=== PATIENT | male | born 1985 | race Caucasian/White ===

== ENCOUNTER 2017-05-20 22:37 | Emergency (ER) | payer MEDICAID ==
[2017-05-20 22:38] VITALS: BP 135/87; PULSE 110; RESP 16; TEMP 98.5; O2SAT 98
[2017-05-20] MEDS ORDERED: BACT800T5 PO (23:27)
[2017-05-20] MEDS ORDERED: SULFAMETHOXAZOLE-TRIMETHOPRIM DS 800-160 MG TAB PO ONE (23:30)
--- NOTE | 2017-05-20 23:31 | PD ---
HPI Chief Complaint: Skin Problem Time Seen by Provider: 23:28 Travel History International Travel<30 days: No Contact w/Intl Traveler<30days: No Traveled to known affect area: No History of Present Illness HPI 32-year-old white male presents to emergency department with complaints of a abscess in his right axilla. He states that he has had one in the past. He's had this now for the past week. He has been in the [facility] drug detox program now for 2 months. The patient states that when he was in incarcerated and had his first abscess they gave him antibiotics and had open and draining on its own. He denies any fever or chills. Pain is mild. Up-to-date with immunizations. PFSH Past Medical History Narrative Medical MRSA abscess, substance abuse Tetanus Vaccination: < 5 Years Past Surgical History Surgical History: No Previous Surgery Social History Alcohol Use: No Tobacco Use: Yes Substance Use: No (HX) Allergies-Medications (Allergen,Severity, Reaction): Coded Allergies: No Known Allergies (Unverified , 05/20/17) Reported Meds & Prescriptions Reported Meds & Active Scripts Active Bactrim DS (Sulfamethoxazole-Trimethoprim) 800-160 Mg Tab 1 Tab PO BID Review of Systems Except as stated in HPI: all other systems reviewed are Neg Physical Exam Narrative GENERAL: This is a well-nourished, well-developed patient, in no apparent distress. SKIN: Patient has an area of erythema tenderness and induration to the right axilla. There is no fluctuance or pointing. The area measures approximately 2 x 2 centimeters.. Warm and dry. HEAD: Atraumatic. Normocephalic. EYES: PERRL, EOMI, no discharge or injection. No scleral icterus. EARS: Clear NOSE: Nasal turbinates appear normal. THROAT: Mucosa pink and moist. Airway patent. NECK: Trachea midline. supple, moves head freely. LUNGS: Clear to auscultation. CV: Regular in rhythm. ABDOMEN: Soft nontender. EXT: No clubbing cyanosis or edema. Data Data Last Documented VS Vital Signs Date Time Temp Pulse Resp B/P Pulse Ox O2 Delivery O2 Flow Rate FiO2 05/20/17 22:38 98.5 110 16 135/87 98 Room Air Orders Sulfamet-Trimeth Ds 800-160 Mg (Bactrim (05/20/17 23:30) MDM Medical Decision Making Medical Screen Exam Complete: Yes Emergency Medical Condition: Yes Medical Record Reviewed: Yes Differential Diagnosis MDM: High Differential diagnoses: Abscess, folliculitis, cellulitis, lymphangitis, abrasion, contact dermatitis Narrative Course Patient is given Bactrim DS by mouth here in the ER. This is right axilla abscess-superficial Diagnosis Primary Impression: Abscess of right axilla Patient Instructions: General Instructions Additional Instructions: Rest. Elevation. keep clean and dry. Warm compresses. Daily wound care with soap and water. Three Advil every 6 hours as needed for pain. Bactrim DS. Follow-up with a primary care doctor in one week. Return to the ER for any problems. Med/Other Pt SpecificInfo: Prescription(s) given, Wound Care Scripts Sulfamethoxazole-Trimethoprim (Bactrim DS)800-160 Mg Tab1 Tab PO BID #20 TAB Prov:Zachariah Penaloza MD 05/20/17 Disposition: 01 DISCHARGE HOME Condition: Stable [place] Pa May 20, 2017 23:31
== END 2017-05-20 23:55 | disposition home or self-care (01) ==
LOC: NEPD 22:37
DX: L02.411 Cutaneous abscess of right axilla (principal)
CPT/HCPCS: 99283

== ENCOUNTER 2017-06-15 14:28 | Emergency (ER) | payer MEDICAID ==
[~2017-06-15] VITALS: Ht 177.8 cm; Wt 100.0 kg
[~2017-06-15 14:28] MED LIST: BACT800T5 PO
[2017-06-15 14:32] VITALS: BP 149/86; PULSE 98; RESP 15; TEMP 98.2; O2SAT 98
[2017-06-15] MEDS ORDERED: IBUPROFEN 800 MG TAB PO ONE (15:00)
[2017-06-15] MEDS ORDERED: IBUP800T23 PO (15:04)
--- NOTE | 2017-06-15 15:04 | PD ---
HPI Chief Complaint: Headache Time Seen by Provider: 14:45 Travel History International Travel<30 days: No Contact w/Intl Traveler<30days: No Traveled to known affect area: No History of Present Illness HPI Patient is a 32-year-old male presenting to the emergency department for evaluation of a headache. Patient states it started this morning, it is similar to headaches he's had in the past. He denies any photophobia, visual changes, nausea, vomiting. Patient states that he is currently at the [facility] and they are unable to give him any acetaminophen or ibuprofen he had to come to the emergency department. Patient's pain is a 4 out of 10 and he describes as aching and dull. Again there have been no alleviating factors, and there are no exacerbating factors. [facility] Past Medical History Medical History: Denies Significant Hx ?: Not Social History Alcohol Use: No Tobacco Use: Yes Substance Use: No (HX) Allergies-Medications (Allergen,Severity, Reaction): Coded Allergies: No Known Allergies (Unverified , 05/20/17) Reported Meds & Prescriptions Reported Meds & Active Scripts Active Bactrim DS (Sulfamethoxazole-Trimethoprim) 800-160 Mg Tab 1 Tab PO BID Review of Systems Except as stated in HPI: all other systems reviewed are Neg General / Constitutional: No: Fever Eyes: No: Blurred Vision HENT: Positive: Headaches, No: Neck Pain Gastrointestinal: No: Nausea Physical Exam Narrative GENERAL: Well-developed, well-nourished, alert male. Resting comfortably in no acute distress. SKIN: Warm and dry. HEAD: Atraumatic. Normocephalic. EYES: Pupils equal and round. No scleral icterus. No injection or drainage. ENT: No nasal bleeding or discharge. Mucous membranes pink and moist. NECK: Trachea midline. No JVD. CARDIOVASCULAR: Regular rate and rhythm. RESPIRATORY: No accessory muscle use. Clear to auscultation. Breath sounds equal bilaterally. GASTROINTESTINAL: Abdomen soft, non-tender, nondistended. Hepatic and splenic margins not palpable. MUSCULOSKELETAL: Extremities without clubbing, cyanosis, or edema. No obvious deformities. NEUROLOGICAL: Awake and alert. No obvious cranial nerve deficits. Motor grossly within normal limits. Five out of 5 muscle strength in the arms and legs. Normal speech. PSYCHIATRIC: Appropriate mood and affect; insight and judgment normal. Data Data Last Documented VS Vital Signs Date Time Temp Pulse Resp B/P (MAP) Pulse Ox O2 Delivery O2 Flow Rate FiO2 06/15/17 14:32 98.2 98 15 149/86 (107) 98 Orders Orders Ibuprofen (Motrin) (06/15/17 15:00) MDM Medical Decision Making Medical Screen Exam Complete: Yes Emergency Medical Condition: Yes Interpretation(s) Vital Signs Date Time Temp Pulse Resp B/P (MAP) Pulse Ox O2 Delivery O2 Flow Rate FiO2 06/15/17 14:32 98.2 98 15 149/86 (107) 98 Differential Diagnosis Headache versus sinusitis versus tension type headache versus cluster headache versus other Narrative Course Patient is a 32-year-old male presenting for evaluation of a headache. Headache is similar to headaches he's had in the past. There are no focal deficits noted on exam. Patient is alert and ambulatory in the emergency department. He is from [facility], presenting to the emergency department via EMS for this headache. There were unable to give any Tylenol or ibuprofen and this treatment program. Patient was given ibuprofen 800 mg by mouth 1 dose. Patient was encouraged to return to emergency department for any new or worsening symptoms. He will be provided with a prescription for ibuprofen. He verbalized understanding of discharge instructions. Patient is stable for discharge. Diagnosis Primary Impression: Headache Qualified Codes: R51 - Headache Referrals: Primary Care Physician Patient Instructions: Acute Headache (ED), General Instructions Additional Instructions: Follow-up with a primary doctor Return to emergency department for any new or worsening symptoms Med/Other Pt SpecificInfo: Prescription(s) given Scripts Ibuprofen (Ibuprofen) 800 Mg Tab 800 MG PO Q6HR Y for PAIN, #40 TAB 0 Refills Prov: Albertina Romano 06/15/17 Disposition: 70 TRANSFER TO OTHER FACILITY Condition: Stable Albertina Romano Jun 15, 2017 15:04
== END 2017-06-15 15:35 | disposition short-term general hospital (02) ==
LOC: NEPK 14:28
DX: R51 Headache (principal); Z72.0 Tobacco use
CPT/HCPCS: 99282

== ENCOUNTER 2017-06-30 00:16 | Emergency (ER) | payer MEDICAID ==
[~2017-06-30] VITALS: Ht 177.8 cm; Wt 98.0 kg
[~2017-06-30 00:16] MED LIST changes: +IBUP800T23 PO
[2017-06-30 00:18] VITALS: BP 161/114; PULSE 130; RESP 16; TEMP 98.5; O2SAT 98
--- NOTE | 2017-06-30 01:19 | PD ---
HPI Chief Complaint: Cold / Flu Symptoms Time Seen by Provider: 00:49 Travel History International Travel<30 days: No Contact w/Intl Traveler<30days: No Traveled to known affect area: No History of Present Illness HPI 32-year-old male with history of substance abuse, currently living in a clean living facility, presents to the emergency department for evaluation of cough and chest congestion worsening over the last 3 days. Patient states at times his chest feels burning and tight. His cough is productive of yellow phlegm. He denies any fever or chills. He has a mild sore throat secondary to coughing. Denies a nausea vomiting. No body aches. Patient has no other symptoms to report. PFSH Past Medical History ADD: Yes (IMPULSE DISORDER) Social History Alcohol Use: No Tobacco Use: Yes (1/2 PPD) Substance Use: No (HX) Allergies-Medications (Allergen,Severity, Reaction): Coded Allergies: No Known Allergies (Unverified , 06/30/17) Reported Meds & Prescriptions Reported Meds & Active Scripts Active Proair Hfa 8.5 GM Inh (Albuterol Sulfate) 90 Mcg/Act Aer 1 Puff INH Q4H PRN 108 mcg/actuation Prednisone 50 Mg Tab 50 Mg PO DAILY 5 Days Ibuprofen 800 Mg Tab 800 Mg PO Q6HR PRN Bactrim DS (Sulfamethoxazole-Trimethoprim) 800-160 Mg Tab 1 Tab PO BID Review of Systems Except as stated in HPI: all other systems reviewed are Neg Physical Exam Narrative GENERAL: Well-nourished, well-developed male patient, ambulatory no acute distress SKIN: Focused skin assessment warm/dry. HEAD: Normocephalic. EYES: No scleral icterus. No injection or drainage. NECK: Supple, trachea midline. No JVD or lymphadenopathy. CARDIOVASCULAR: Tachycardic rate and rhythm without murmurs, gallops, or rubs. RESPIRATORY: Breath sounds equal bilaterally. Diminished bases, intermittent inspiratory wheezing. No accessory muscle use. GASTROINTESTINAL: Abdomen soft, non-tender, nondistended. MUSCULOSKELETAL: No cyanosis, or edema. BACK: Nontender without obvious deformity. No CVA tenderness. Data Data Last Documented VS Vital Signs Date Time Temp Pulse Resp B/P (MAP) Pulse Ox O2 Delivery O2 Flow Rate FiO2 06/30/17 02:38 06/30/17 02:29 92 06/30/17 00:18 98.5 16 98 Room Air Orders Orders Chest, Single Ap (06/30/17 ) [facility] Medical Decision Making Medical Screen Exam Complete: Yes Emergency Medical Condition: Yes Medical Record Reviewed: Yes Differential Diagnosis Bronchitis versus pneumonia versus influenza versus common cold versus allergies Narrative Course 32-year-old male presents for sperm for evaluation of cough and chest congestion. Patient appears without distress. He is tachycardic initially. He does have diminished breath sounds with an intermittent inspiratory wheeze. Chest x-ray confirms no acute cardiopulmonary disease. Patient be started on oral steroids as well as provided a pro-air inhaler. He is comfortable with this plan of care. Recheck heart rate has reduced to 96 bpm. Patient will be discharged at this time. Diagnosis Primary Impression: Bronchitis Referrals: Primary Care Physician Patient Instructions: Acute Bronchitis (ED), General Instructions Additional Instructions: Stop smoking tobacco cigarettes Follow up with a primary care provider Tylenol or ibuprofen as directed on the package as needed for fever or pain Return to ED with acute worsening of symptoms Med/Other Pt SpecificInfo: Prescription(s) given Scripts Albuterol 8.5 GM Inh (Proair Hfa 8.5 GM Inh) 90 Mcg/Act Aer 1 PUFF INH Q4H Y for SHORTNESS OF BREATH, #1 INHALER 0 Refills 108 mcg/actuation Prov: Anabella Jesus 06/30/17 Prednisone (Prednisone) 50 Mg Tab 50 MG PO DAILY for 5 Days, #5 TAB 0 Refills Prov: Anabella Jesus 06/30/17 Disposition: 01 DISCHARGE HOME Condition: Stable Anabella Jesus Jun 30, 2017 01:19
--- NOTE | 2017-06-30 02:06 | RADRPT ---
EXAM DATE/TIME: 06/30/2017 01:39 [place] COMPARISON: No previous studies available for comparison. INDICATIONS : Cough and other cold symptoms. MEDICAL HISTORY : None. SURGICAL HISTORY : None. ENCOUNTER: Initial ACUITY: 2 days PAIN SCORE: 0/10 LOCATION: Bilateral chest FINDINGS: A single view of the chest demonstrates the lungs to be symmetrically aerated without evidence of mas s, infiltrate or effusion. The cardiomediastinal contours are unremarkable. Osseous structures are intact. CONCLUSION: The lungs are clear. Chato Meléndez MD on June 30, 2017 at 2:01 Board Certified Radiologist. This report was verified electronically.
[2017-06-30] MEDS ORDERED: PRED50 PO (02:10)
[2017-06-30] MEDS ORDERED: ALBUAER3 INH (02:10)
[2017-06-30 02:29] VITALS: PULSE 92
== END 2017-06-30 02:52 | disposition home or self-care (01) ==
LOC: NEPD 00:16
DX: J40 Bronchitis, not specified as acute or chronic (principal); R00.0 Tachycardia, unspecified; R06.2 Wheezing; R07.0 Pain in throat; F17.200 Nicotine dependence, unspecified, uncomplicated; Z86.59 Personal history of other mental and behavioral disorders
CPT/HCPCS: 71010; 99284